=== PATIENT | male | born 1945 | race Caucasian/White ===

== ENCOUNTER 2017-04-20 21:38 | Observation (INO) | payer OTHER, MEDICARE, SELFPAY | END 2017-04-21 09:47 | disposition home or self-care (01) | PROVIDERS: Admitting Provider Family Medicine; Emergency Provider Emergency Medicine; Visit Provider Family Medicine | DX: R07.9 Chest pain, unspecified (principal); I25.10 Atherosclerotic heart disease of native coronary artery without angina pectoris; Z95.1 Presence of aortocoronary bypass graft; Z95.5 Presence of coronary angioplasty implant and graft; I10 Essential (primary) hypertension; E11.9 Type 2 diabetes mellitus without complications; R06.09 Other forms of dyspnea | CPT/HCPCS: 36415; 71010; 80053; 82962; 83880; 84484; 85025; 93005; 93041; 94760; 99285; G0378 ==

== ENCOUNTER 2017-06-28 09:55 | Outpatient (RCR) | payer OTHER, MEDICARE, SELFPAY | END 2017-09-22 15:01 | disposition home or self-care (01) | LOC: PT 09:55 | PROVIDERS: Visit Provider Physician Assistant | DX: I25.10 Atherosclerotic heart disease of native coronary artery without angina pectoris (principal) | CPT/HCPCS: 93798 ==

== ENCOUNTER 2019-09-13 16:12 | Emergency (ER) | payer OTHER, MEDICARE, SELFPAY ==
[2019-09-13 16:24] VITALS: BP 151/85; PULSE 89; RESP 16; TEMP 36.3; O2SAT 98; BMI 39.3
[2019-09-13 16:35] VITALS: BP 151/85; PULSE 89; RESP 16; TEMP 36.3; O2SAT 98; BMI 39.1
--- NOTE | 2019-09-13 17:45 | HMH.EDUTC ---
[facility] [place] Disposition Clinical Impression: Laceration Disposition: Home, Self-Care Condition on Discharge: Good Instructions: How to Care for a Laceration After Repair, Laceration Repair, DI for Laceration Repair, DI for Laceration Repair -- Simple Additional Instructions: Suture instructions: You have required stitches today. Please read the following instructions so you know how to care for them: 1. Keep wound area dry for the first 24 hours. 2 May clean gently with mild soap and water, after 48 hours to prevent crusting over suture knots. 3. You may shower if your provider gives permission but do not take a bath until the skin is healed.. 4. Never leave a wet dressing or Band-Aid on your stitches as this allows bacteria to reach the area and may cause infection. Band-aids can cause the wound to sweat and not recommended to wear for long periods of time no neosprin or bandaids after today Watch for signs of infection: Increasing redness, tenderness or warmth around the suture site Unusual swelling around the site Appearance of pus around each suture or any red streaks Fever If you develop any of the above signs or symptoms of infection, Follow up with Family Physician immediately 5. Suture removal in _7-10___days 6. [facility] or follow up with family doctor for removal. This can be done by any medical provider during regular hours on Tuesday through Tuesday, by appointment. Referrals: Provider,Referral, MD [Primary Care Provider] - As needed Time of Disposition: 17:50 Medical Decision Making - Navjot Inquiry Pt receiving controlled substance: No Navjot was queried for this patient: No Vital Signs: 09/13/19 16:24 09/13/19 16:35 Temperature 97.4 F L 97.4 F L Temperature Source Oral Oral Pulse Rate [Left Radial] 89 89 Respiratory Rate 16 16 Blood Pressure [Right Arm] 151/85 H 151/85 H Blood Pressure Mean [Right Arm] 107 107 Blood Pressure Source [Right Arm] Automatic Cuff Blood Pressure Position [Right Arm] Sitting Sitting 02 Sat by Pulse Oximetry 98 98 Oxygen Delivery Method Room Air Room Air Orders (Tests/Meds): ED MEDICATIONS Discontinued Medications Generic Name Dose Route Start Last Admin Trade Name Freq PRN Reason Stop Dose Admin Tetanus/Diphtheria Toxoids 0.5 ml 09/13/19 17:44 Tenivac 0.5ml Syringe IM 09/13/19 17:45 .ONCE ONE [facility] [place] HPI - General Stated complaint: AO 0521 1430 Lac to L arm Time Seen by Provider: 09/13/19 17:00 Mode of Arrival: Ambulatory Source of Information: Patient Limitations: No Limitations Description of Symptoms (Recalled from Triage Doc. by RN): to ed per pvt car with c/o lac to lt forearm from box stamper. HEENT Symptoms (Recalled from RN notes): No Resp Symptoms (Recalled from RN notes): No Skin Symptoms (Recalled from RN notes): Yes MS Symptoms (Recalled from RN notes): No Functional Status (Recalled from RN notes): na - History of Present Illness Provider Complaint: Patient state that he was using a box stamper a couple hours ago and it slipped and caused laceration to his left forearm State that he applied pressure and cleaned the laceration with soap and water States that he had look at it and she thought he may need stiches and needed a tetanus shot so he came on in - Related Data Allergies Allergy/AdvReac Type Severity Reaction Status Date / Time No Known Allergies Allergy Verified 09/13/19 16:43 - Worker's Comp Is this a Worker's Comp case?: No [facility] History - Hepatitis A Screen Drug use history?: No High risk sexual behaviors?: No History of sexually transmitted infection?: No Currently employed?: No Childcare worker?: No Do you have indoor plumbing?: Yes Do you have electricity?: Yes Attestation statement:: This patient has been screened for Hepatitis A risk factors. I have reviewed the patient's past medical history: Yes ROS Obtained: Yes All systems reviewed & no additional complaints, Yes Systems review
[2019-09-13 17:51] VITALS: BP 150/80; PULSE 80; RESP 16; TEMP 36.4; O2SAT 98
== END 2019-09-13 17:55 | disposition home or self-care (01) ==
PROVIDERS: Emergency Provider Nurse Practitioner
DX: S51.812A Laceration without foreign body of left forearm, initial encounter (principal); W26.0XXA Contact with knife, initial encounter; Y92.019 Unspecified place in single-family (private) house as the place of occurrence of the external cause; Z23 Encounter for immunization
CPT/HCPCS: 12001; 90471; 90714; 99201

== ENCOUNTER 2019-09-22 13:39 | Emergency (ER) | payer MEDICARE, OTHER, SELFPAY ==
[2019-09-22 13:40] VITALS: BP 136/70; PULSE 78; RESP 19; TEMP 36.6; O2SAT 99; BMI 39.2; BMI 39.3
[2019-09-22 14:14] VITALS: BP 136/70; PULSE 78; RESP 19; TEMP 36.6; O2SAT 99
== END 2019-09-22 14:14 | disposition home or self-care (01) ==
LOC: UTC 13:51
PROVIDERS: Emergency Provider Nurse Practitioner
DX: S51.812D Laceration without foreign body of left forearm, subsequent encounter (principal)
CPT/HCPCS: 99201

== ENCOUNTER 2020-05-08 16:49 | Emergency (ER) | payer MEDICARE, OTHER, SELFPAY ==
--- NOTE | 2020-05-08 16:59 | XR_ITS ---
PROCEDURE: XR SHOULDER RT MIN 2V CLINICAL INDICATION: fall Posttraumatic pain with limited range of motion COMPARISON: No exams were available for comparison FINDINGS: There are severe osteoarthritic changes the right shoulder with prominent bony hypertrophy/osteophytes at the humeral head superiorly and inferiorly. In addition, there is a minimally displaced fracture involving the neck and proximal diaphyseal region of the humerus. Humeral head is located. Osteoarthritic changes are also present at the acromioclavicular joint. IMPRESSION: Minimally displaced fracture involving the neck and proximal diaphyseal region of the right humerus with associated severe osteoarthritic changes Dictated by: Mreritt De Guzman MD 05/08/2020 18:03 Merritt De Guzman MD in [place] 05/08/2020 18:03
[2020-05-08 17:05] VITALS: BP 151/84; PULSE 82; RESP 18; TEMP 36.6; O2SAT 98; BMI 39.3
--- NOTE | 2020-05-08 17:24 | HMH.EDUTC ---
[facility] [place] Disposition Clinical Impression: Fracture of neck of humerus Qualifiers: Encounter type: initial encounter Fracture type: closed Laterality: right Qualified Code(s): S42.211A - Unspecified displaced fracture of surgical neck of right humerus, initial encounter for closed fracture Disposition: Home, Self-Care Condition on Discharge: Good Instructions: How to Use a Sling, How To Perform RICE (Rest, Ice, Compress, Elevate), DI for Humeral Fracture Additional Instructions: *RICE, Rest the extremity, Ice 15-20 minutes 3-4 times daily, Compress- wear the dharmesh wrap as discussed as much as possible to help reduce swelling and pain, Elevate the extremity when at rest *Dharmesh wrap/Sling is for support and help control swelling, *Elevate when resting *Ibuprofen every 6-8 hours as needed for pain an inflammation.If your doctor has told you that you can take it, If need something more can take Tylenol in between doses of Ibuprofen to help Immediately follow up with your family doctor for new or worsening of symptoms, or no noticeable improvement over the next 3-[address] Jeffery office will call you in the morning with appointment be prepared for same day appointment Wear sling all the time as advised Return if needed Straight to ER if any life threatening symptoms Referrals: Ariane Ross APRN [Primary Care Provider] - Carmel Jeffery MD [Physician] - As needed (Office will call you in the morning with appointment ) Time of Disposition: 17:35 Medical Decision Making - Navjot Inquiry Pt receiving controlled substance: No Navjot was queried for this patient: No Vital Signs: 05/08/20 17:05 05/08/20 17:38 Temperature 97.8 F 97.8 F Temperature Source Oral Pulse Rate 82 Pulse Rate [Right Brachial] 82 Respiratory Rate 18 18 Blood Pressure 151/84 H Blood Pressure [Right Arm] 151/84 H Blood Pressure Mean [Right Arm] 106 Blood Pressure Source [Right Arm] Automatic Cuff Blood Pressure Position [Right Arm] Sitting 02 Sat by Pulse Oximetry 98 Oxygen Delivery Method Room Air - Radiology Data #1 Image(s): Shoulder (right) Image Reviewed: Yes I reviewed the patient's radiology image Humeral neck fracture - Physician Consults Physician Consulted: Latia Time: 17:30 Reason -: Orthopedic Eval/Care Comment/Response: Spoke with Dr Schwindel she viewed xray and agreed She advised to place in sling, rice and her office would call in the morning with appointment Medical Decision Narrative: Patient reports that he has Motrin and Tylenol at home and can take for pain Patient educated on RICE and sling in place [facility] [place] HPI - General Stated complaint: AO 05/08 @ 1600 fell injury to right shoulder Time Seen by Provider: 05/08/20 17:10 Mode of Arrival: Ambulatory Source of Information: Patient, Spouse Limitations: No Limitations Description of Symptoms (Recalled from Triage Doc. by RN): INJURY TO RIGHT SHOULDER AFTER PATIENT TRIPPED OVER HIS DOG AND FELL APPROX 1510 TODAY HEENT Symptoms (Recalled from RN notes): No Resp Symptoms (Recalled from RN notes): No Skin Symptoms (Recalled from RN notes): No MS Symptoms (Recalled from RN notes): Yes Functional Status (Recalled from RN notes): WNL - History of Present Illness Provider Complaint: Patient states that he was walking at home and tripped over the dog and landed on his right shoulder States that ever since he has been having pain in his right shoulder that is worse with movement Denies loss of sensation Denies LOC or any other injury - Related Data Previous Rx's Medication Instructions Recorded cephALEXin [Keflex 500mg Cap] 500 mg PO Q6H 7 Days #28 cap 09/22/19 Allergies Allergy/AdvReac Type Severity Reaction Status Date / Time No Known Allergies Allergy Verified 09/13/19 16:43 - Worker's Comp Is this a Worker's Comp case?: No [facility] History - Hepatitis A Screen Drug use history?: No High risk sexual behaviors?: No History of sexua
[2020-05-08 17:38] VITALS: BP 151/84; PULSE 82; RESP 18; TEMP 36.6; O2SAT 98
== END 2020-05-08 17:45 | disposition home or self-care (01) ==
PROVIDERS: Emergency Provider Nurse Practitioner; PCP Nurse Practitioner Family
DX: S42.211A Unspecified displaced fracture of surgical neck of right humerus, initial encounter for closed fracture (principal); W01.0XXA Fall on same level from slipping, tripping and stumbling without subsequent striking against object, initial encounter; Y92.019 Unspecified place in single-family (private) house as the place of occurrence of the external cause
CPT/HCPCS: G0463; 73030; 99202

== ENCOUNTER 2022-10-13 10:19 | Emergency (ER) | payer MEDICARE, OTHER, SELFPAY ==
[2022-10-13 10:20] VITALS: BP 129/74; PULSE 81; RESP 18; TEMP 36.6; O2SAT 97; BMI 38.6
--- NOTE | 2022-10-13 10:43 | EXP.UTC ---
Discharge Plan Disposition Patient Disposition: Home, Self-Care Condition: Good Prescriptions Prescriptions: New doxycycline hyclate [doxycycline hyclate] 100 mg capsule 100 mg PO Q12 10 Days Qty: 20 0RF mupirocin 2 % ointment 1 applic topical TID 7 Days Qty: 15 0RF No Action hydrocodone-acetaminophen 5-325 mg tablet 1 tab PO Q8H PRN (Reason: pain) Qty: 20 0RF metformin 1,000 mg tablet 1,000 mg PO DAILY lisinopril 10 mg tablet 10 mg PO DAILY atorvastatin 10 mg tablet 10 mg PO DAILY aspirin [Adult Aspirin Regimen] 81 mg tablet,delayed release (DR/EC) 81 mg PO DAILY Referrals Follow up/Referrals: Provider,Referral, MD [Primary Care Provider] - See instructions Activity Restrictions/Add. Instructions Additional Instructions/Restrictions: Keep the wound clean and dry. Watch the wound for signs of infection, such as redness, swelling, drainage, fever. etc. Take tylenol for pain. Follow up with your regular doctor. GO TO THE ER FOR ANY WORSENING SYMPTOMS OR CONCERNS. Clinical Impressions Clinical Impression: Tick bite Instructions Patient Instructions: Protect Yourself from Tickborne Illnesses Discharge ED Provider: Gomez Alegria [facility] [place] HPI General Stated complaint: Possible tick bite RT arm Mode of Arrival: Ambulatory Source of Information: Patient Limitations: No Limitations Time Seen by Provider: 10/13/22 10:42 Description of Symptoms (Recalled from Triage Doc. by RN): Complaint of a tick bite uder right arm on Tuesday. HEENT Symptoms (Recalled from RN notes): No Resp Symptoms (Recalled from RN notes): No Skin Symptoms (Recalled from RN notes): Yes MS Symptoms (Recalled from RN notes): No Functional Status (Recalled from RN notes): wnl History of Present Illness Provider Complaint: He states that he found a tick embedded on his right arm yesterday. He has redness at the site. Related Data Home Medications Medication Instructions Recorded Confirmed aspirin 81 mg tablet,delayed 81 mg PO DAILY 05/09/20 05/09/20 release (Adult Aspirin Regimen) atorvastatin 10 mg tablet 10 mg PO DAILY 05/09/20 05/09/20 lisinopril 10 mg tablet 10 mg PO DAILY 05/09/20 05/09/20 metformin 1,000 mg tablet 1,000 mg PO DAILY 05/09/20 05/09/20 Previous Rx's Medication Instructions Recorded hydrocodone 5 mg-acetaminophen 325 1 tab PO Q8H PRN pain #20 tabs 05/09/20 mg tablet doxycycline hyclate 100 mg capsule 100 mg PO Q12 10 days #20 caps 10/13/22 mupirocin 2 % topical ointment 1 applic topical TID 7 days #15 10/13/22 grams Allergies Allergy/AdvReac Type Severity Reaction Status Date / Time No Known Allergies Allergy Verified 05/09/20 10:51 Worker's Comp Is this a Worker's Comp case?: No PFSH COUNT INCLUDES THE [facility] Disclaimer: The information contained in this section may have been updated after the patient was seen, as this information can be updated by other users. Social History Smoking Status: Never smoker second hand exposure: No alcohol intake: never current occupational status: retired Travel in the last 8 weeks: None housing: house ROS Obtained: Yes All systems reviewed & no additional complaints except as documented Constitutional Constitutional: Denies chills and Denies fever(s) Eyes Eyes: Denies eye discharge ENT Ears, Nose, Mouth, and Throat: Denies dizziness, Denies otalgia and Denies sore throat Cardiovascular Cardiovascular: Denies chest pain Respiratory Respiratory: Denies shortness of breath, Denies chest congestion, Denies cough, Denies stridor and Denies wheezing Gastrointestinal Gastrointestingal: Denies nausea or vomiting Musculoskeletal Musculoskeletal: Reports system reviewed and no additional complaints, except as documented and Denies arthralgias Integumentary/Breasts Skin/Breast: Reports as per HPI Neurologic Neurologic: Denies dizziness and Denies paresthesias All
[2022-10-13 10:57] VITALS: BP 129/74; PULSE 81; RESP 18; TEMP 36.6; O2SAT 97
== END 2022-10-13 10:58 | disposition home or self-care (01) ==
PROVIDERS: Emergency Provider Nurse Practitioner Family
DX: S50.861A Insect bite (nonvenomous) of right forearm, initial encounter (principal); W57.XXXA Bitten or stung by nonvenomous insect and other nonvenomous arthropods, initial encounter
CPT/HCPCS: 99212; 99214; G0463

== ENCOUNTER 2024-04-11 19:39 | Emergency (ER) | payer MEDICARE, OTHER, SELFPAY ==
[2024-04-11 19:41] VITALS: BP 155/93; PULSE 97; RESP 14; TEMP 37.1; O2SAT 99; BMI 41.3
--- NOTE | 2024-04-11 20:04 | HMH.EDGENADL ---
Discharge Plan Disposition Patient Disposition: Home, Self-Care Condition: Good Prescriptions Prescriptions: New nlogotuuprwenit-dvdqvndoq-BM [Bromfed DM] 2-30-10 mg/5 mL syrup 5 ml PO Q4H PRN (Reason: sinus symptoms) Qty: 118 0RF No Action hydrocodone-acetaminophen 5-325 mg tablet 1 tab PO Q8H PRN (Reason: pain) Qty: 20 0RF metformin 1,000 mg tablet 1,000 mg PO DAILY lisinopril 10 mg tablet 10 mg PO DAILY atorvastatin 10 mg tablet 10 mg PO DAILY aspirin [Adult Aspirin Regimen] 81 mg tablet,delayed release (DR/EC) 81 mg PO DAILY doxycycline hyclate [doxycycline hyclate] 100 mg capsule 100 mg PO Q12 10 Days Qty: 20 0RF mupirocin 2 % ointment 1 applic topical TID 7 Days Qty: 15 0RF Referrals Follow up/Referrals: Provider,Referral, MD [Referring] - See instructions Activity Restrictions/Add. Instructions Additional Instructions/Restrictions: I sent a medication into help with your symptoms. Please take Tylenol alternating with Motrin every 4 hours for other body aches and sore throat. Follow-up with your PCP if no improvement change or worsening signs or symptoms or return to the ER as needed Clinical Impressions Clinical Impression: Acute upper respiratory infection Print Language Print Language: Bengali Discharge ED Provider: Clarence Loyd General Adult HPI <GEORGE Roberts - Last Filed: 04/11/24 20:23> General Chief complaint: Upper Respiratory Infection Stated complaint: cough,runny nose , sore throat Time Seen by Provider: 04/11/24 20:04 History of Present Illness HPI narrative: Patient presents for evaluation of cough runny nose and sore throat. When asked to prioritize his symptoms the sore throat is the worst. He denies any shortness of breath chest pain chills hemoptysis hematochezia melena nausea vomiting diarrhea but does report feeling subjectively feverish. Related Data Home Medications ?Medication ?Instructions ?Recorded ?Confirmed aspirin 81 mg tablet,delayed 81 mg PO DAILY 05/09/20 05/09/20 release (Adult Aspirin Regimen) atorvastatin 10 mg tablet 10 mg PO DAILY 05/09/20 05/09/20 lisinopril 10 mg tablet 10 mg PO DAILY 05/09/20 05/09/20 metformin 1,000 mg tablet 1,000 mg PO DAILY 05/09/20 05/09/20 Previous Rx's ?Medication ?Instructions ?Recorded hydrocodone 5 mg-acetaminophen 325 1 tab PO Q8H PRN pain #20 tabs 05/09/20 mg tablet doxycycline hyclate 100 mg capsule 100 mg PO Q12 10 days #20 caps 10/13/22 mupirocin 2 % topical ointment 1 applic topical TID 7 days #15 10/13/22 grams klrerjwfxowikab-sqcsjfdnbdfblre-AX 5 ml PO Q4H PRN sinus symptoms 04/11/24 2 mg-30 mg-10 mg/5 mL oral syrup #118 mL (Bromfed DM) Allergies Allergy/AdvReac Type Severity Reaction Status Date / Time No Known Allergies Allergy Verified 05/09/20 10:51 PFSH <GEORGE Roberts - Last Filed: 04/11/24 20:23> PFS Disclaimer: The information contained in this section may have been updated after the patient was seen, as this information can be updated by other users. Social History Smoking Status: Never smoker second hand exposure: No alcohol intake: never current occupational status: retired Travel in the last 8 weeks: None housing: house Have you lived/traveled outside [place] in past 30 days?: No Contact w/someone who lives/traveled outside US past 30 days?: No Exposure to someone with infectious disease in past 14 days?: No Do you have a fever (greater than 100.4 F or 38 C)?: No Have you tested positive for COVID-19: No Exposed to someone with COVID-19 in past 14 days?: No Do you have a sore throat?: Yes Do you have a cough?: No Do you have any weakness?: No Do you have any diarrhea?: No Are you experiencing any unusual bleeding?: No Do you have any muscle aches/pain?: No Do you have any abdominal pain?: No Are you experiencing loss of taste or smell?: No Other Medical History Have you received the Pneumonia Vaccine: Yes <GEORGE Roberts - Last Filed: 04/11/24 20:23> ROS Obtained: Yes Systems reviewed as appropriate & no additional complaints except as documented Physical Exam <GEORGE Roberts - Last Filed: 04/11/24 20:23> General General appearance: alert and in no apparent distress Respiratory Respiratory exam: Present normal lung sounds bilaterally Cardiovascular Cardiovascular exam: Present regular rate Neurological Exam Neurological exam: Present alert and oriented X3 Medical Decision Making <GEORGE Roberts - Last Filed: 04/11/24 20:23> Medical Records Medical records reviewed: Yes I reviewed the patient's medical records. Screening: Per USPSTF and CDC recommendations, given the prevalence of disease in our region, it is our hospital?s policy to screen for HIV and viral Hepatitis for all patients aged 18 and over and those with ongoing risk factors. Navjot Inquiry Pt receiving controlled substance: No Vital Signs: 04/11/24 19:41 04/11/24 20:23 Temperature 98.7 F 98.7 F Temperature Source Oral Oral Pulse Rate 95 H Pulse Rate [Right Radial] 97 H Respiratory Rate 14 14 Blood Pressure 150/72 H Blood Pressure [Right Arm] 155/93 H Blood Pressure Mean [Right Arm] 113 Blood Pressure Source Automatic Cuff Blood Pressure Source [Right Arm] Automatic Cuff Blood Pressure Position Supine Blood Pressure Position [Right Arm] Supine 02 Sat by Pulse Oximetry 99 Oxygen Delivery Method Room Air Room Air Orders (Tests/Meds): ORDERS Category Date Time Status Full Resp Panel w/COVID ([facility]) Routine Lab 04/11/24 20:14 Received Medical Decision Narrative: In summary patient is a 79-year-old male who presents to the emergency department for evaluation of upper respiratory tract infection. Patient is hemodynamically stable upon arrival, afebrile. Physical exam is remarkable for boggy nasal mucosa and slightly erythematous posterior oropharynx without exudate, no cervical lymphadenopathy, no increased work of breathing, patient satting at 95% on room air, EKG shows normal sinus rhythm on the bedside monitor, breath sounds clear and equal bilaterally to the bases without adventitious sounds.. Differential diagnosis includes COVID versus flu versus other viral upper respiratory tract infection and less likely a bacterial respiratory tract infection. Initial workup will be conducted with full respiratory swab. Initial interventions were considered however patient is afebrile currently in no acute distress thus initial interventions deferred. I had interactive discussion with the patient regarding his case presentation and symptoms and indicated that he likely has a viral infection however I was willing to do a respiratory swab if he wished and he could either wait on the results or go home and check on the portal. Via patient directed discharge he elected to go home and check through the portal. I have sent a prescription in for Bromfed along with recommendations to continue Tylenol alternating with Motrin for constitutional symptoms. <Clarence Loyd MD - Last Filed: 04/11/24 21:26> Vital Signs: 04/11/24 19:41 04/11/24 20:23 Temperature 98.7 F 98.7 F Temperature Source Oral Oral Pulse Rate 95 H Pulse Rate [Right Radial] 97 H Respiratory Rate 14 14 Blood Pressure 150/72 H Blood Pressure [Right Arm] 155/93 H Blood Pressure Mean [Right Arm] 113 Blood Pressure Source Automatic Cuff Blood Pressure Source [Right Arm] Automatic Cuff Blood Pressure Position Supine Blood Pressure Position [Right Arm] Supine 02 Sat by Pulse Oximetry 99 Oxygen Delivery Method Room Air Room Air Orders (Tests/Meds): ORDERS Category Date Time Status Full Resp Panel w/COVID ([facility]) Routine Lab 04/11/24 20:14 Received Medical Decision Narrative: In summary patient is a 79-year-old male who presents to the emergency department for evaluation of upper respiratory tract infection. Patient is hemodynamically stable upon arrival, afebrile. Physical exam is remarkable for boggy nasal mucosa and slightly erythematous posterior oropharynx without exudate, no cervical lymphadenopathy, no increased work of breathing, patient satting at 95% on room air, EKG shows normal sinus rhythm on the bedside monitor, breath sounds clear and equal bilaterally to the bases without adventitious sounds.. Differential diagnosis includes COVID versus flu versus other viral upper respiratory tract infection and less likely a bacterial respiratory tract infection. Initial workup will be conducted with full respiratory swab. Initial interventions were considered however patient is afebrile currently in no acute distress thus initial interventions deferred. I had interactive discussion with the patient regarding his case presentation and symptoms and indicated that he likely has a viral infection however I was willing to do a respiratory swab if he wished and he could either wait on the results or go home and check on the portal. Via patient directed discharge he elected to go home and check through the portal. I have sent a prescription in for Bromfed along with recommendations to continue Tylenol alternating with Motrin for constitutional symptoms. JR attestation I was consulted by the JR, and we discussed the complexity of problems being addressed. I approved the treatment and management plan for this patient's care in the emergency department, thus performing a substantial portion of the medical decision making. Clarence Loyd MD Critical Care <GEORGE Roberts - Last Filed: 04/11/24 20:23> Critical Care Time Critical Care Time: No
[2024-04-11 20:23] VITALS: BP 150/72; PULSE 95; RESP 14; TEMP 37.1; O2SAT 99
[2024-04-11 21:24] LABS: Adenovirus,PCR Not Detected (NotDetected); Bordetella Pertussis Not Detected (NotDetected); Chlamydophila Pneumoniae, PCR Not Detected (NotDetected); Coronavirus 19, PCR Not Detected (NotDetected); Coronavirus 229E Not Detected (NotDetected); Coronavirus NL63 Not Detected (NotDetected); Coronavirus OC43 Not Detected (NotDetected); Coronovirus HKU1,PCR Not Detected (NotDetected); Human Metapneumovirus Not Detected (NotDetected); Influenza A, PCR Not Detected (NotDetected); Influenza AH1, 2009 Not Detected (NotDetected); Influenza AH1, PCR Not Detected (NotDetected); Influenza B, PCR Not Detected (NotDetected); Mycoplasma Pneumoniae, PCR Not Detected (NotDetected); Parainfluenza 1, PCR Not Detected (NotDetected); Parainfluenza 2, PCR Not Detected (NotDetected); Parainfluenza 3, PCR Not Detected (NotDetected); Parainfluenza 4, PCR Not Detected (NotDetected); Respiratory Syncytial Virus Not Detected (NotDetected); Rhinovirus/Enterovirus Not Detected (NotDetected)
[2024-04-11 22:54] LABS: Influenza AH3,PCR Detected (NotDetected)
== END 2024-04-11 20:27 | disposition home or self-care (01) ==
PROVIDERS: Physician Assistant; Emergency Provider Student in an Organized Health Care Education/Training Program; PCP Nurse Practitioner Family
DX: J06.9 Acute upper respiratory infection, unspecified (principal); R05.9 Cough, unspecified; J02.9 Acute pharyngitis, unspecified; R09.89 Other specified symptoms and signs involving the circulatory and respiratory systems
CPT/HCPCS: 87633; 99283